=== PATIENT | male | born 1955 | race Caucasian/White ===

== ENCOUNTER 2017-09-23 08:06 | Outpatient (CLI) | payer BC ==
[2017-09-23] MEDS ORDERED: Iopamidol 370 76% 100 ML VIAL ONE (09:00)
--- NOTE | 2017-09-23 11:07 | CT ---
ABDOMEN AND PELVIS CT SCAN WITH IV CONTRAST: HISTORY: Rectal cancer diagnosed in January 2017 with colon resection and colostomy. COMPARISON: CT from 01/09/2017. FINDINGS: The lung bases are clear. The visualized liver, gallbladder, pancreas, spleen, and adrenal glands ar e unremarkable. No renal calculus or acute obstruction. Postop changes in the region of the rect um with a right-sided ileostomy. There is a focal posterior outpouching of the bladder, probably a w bhavna opened bladder diverticulum. Small left inguinal fat-containing hernia. No evidence for adenopa thy within the abdomen or pelvis. No abscess or abnormal fluid collection. IMPRESSION: 1. Postoperative changes in the region of the rectum. 2. Right lower ileostomy. 3. No evidence for metastasis. 4. Several very small, stable liver hypodensities, too small to characterize, unchanged from prior e xam. POS: [facility]
== END 2017-09-23 08:07 | disposition home or self-care (01) ==
LOC: SCSCT 08:06
PROVIDERS: ATTEND Internal Medicine Hematology & Oncology
DX: C20 Malignant neoplasm of rectum (principal); K76.89 Other specified diseases of liver; Z98.890 Other specified postprocedural states; Z93.2 Ileostomy status
CPT/HCPCS: 74177